=== PATIENT | female | born 1965 | race African-American/Black ===

== ENCOUNTER 2017-10-02 23:05 | Emergency (ER) | payer OTHER ==
[~2017-10-02] VITALS: Ht 157.5 cm; Wt 93.4 kg
[2017-10-02 23:46] LABS: Hematocrit 37.6 % (36.0-46.0); Hemoglobin 12.4 g/dL (12.2-16.2); Mean Corpuscular Volume 87.8 fL (80.0-100.0); Platelet Count (auto) 213 10^3/uL (140-450); Red Blood Cells 4.29 10^6/uL (4.0-5.20); White Blood Cell 7.3 10^3/uL (4.4-10.8)
[2017-10-03 00:03] LABS: Albumin 3.7 g/dL (3.4-5.0); BUN/Creatinine Ratio 12.4; Calcium 9.6 mg/dL (8.5-10.1); Magnesium 2.1 mg/dL (1.6-2.6); Potassium 4.1 mmol/L (3.5-5.1); Red Cell Distribution Width 22.1 % (11.8-14.3)
[2017-10-03 00:04] LABS: Basophils % (manual) 0 (0.0-2.0); Blast Cells 0; Metamyelocytes % 0; Myelocytes % 0; Promyelocytes % 0; Reactive Lymphocytes 0
[2017-10-03 00:09] LABS: INR 0.9 (0.9-1.15); Partial Thromboplastin Time 22.9 sec (22.64-33.71); Prothrombin Time 9.8 sec (9.37-12.3)
[2017-10-03 00:15] LABS: Bilirubin, Total 0.9 mg/dL (0.2-1.0); Total Protein 6.9 g/dL (6.4-8.2)
[2017-10-03 00:34] LABS: Band Neutrophils % (manual) 8; Eosinophils % (manual) 3 (0-7); Lymphocytes % (manual) 27 (10.0-50.0); Monocytes % (manual) 19 (0-12)
[2017-10-03] MEDS ORDERED: SODIUM CHLORIDE 0.9% 500 ML IV ONE (07:22)
[2017-10-03] MEDS ORDERED: MORPHINE SULFATE 10 MG/ML INJ 1ML SDV IV ONE (07:30)
[2017-10-03] MEDS ORDERED: ONDANSETRON HCL 4 MG/2 ML VIAL IV ONE (07:30)
[2017-10-03 08:30] VITALS: BP 150/90
== END 2017-10-03 09:52 | disposition home or self-care (01) ==
LOC: EDBD 23:05 → ER 23:05
DX: M79.605 Pain in left leg (principal); M79.604 Pain in right leg; C78.02 Secondary malignant neoplasm of left lung; Z85.038 Personal history of other malignant neoplasm of large intestine; Z90.49 Acquired absence of other specified parts of digestive tract; I10 Essential (primary) hypertension
CPT/HCPCS: 36415; 80053; 83735; 83880; 84443; 84484; 85007; 85027; 85379; 85610; 85730; 93005; 93970; 94761; 96360; 99285; J7040; 96361